=== PATIENT | male | born 2000 | race Caucasian/White ===

== ENCOUNTER 2022-06-12 10:39 | Emergency (ER) | payer MEDICAID, SELFPAY ==
[2022-06-12] VITALS (11 sets, daily range): BP systolic 125–139; BP diastolic 71–90; PULSE 62–92; RESP 24; TEMP 36.3; O2SAT 94–100; BMI 19.2
--- NOTE | 2022-06-12 11:17 | ED.GENADULT ---
HPI - General Adult General Time Seen by Provider: 11:17 Date Seen: 06/12/22 Chief complaint: Shortness of Breath/Dyspnea Stated complaint: Trouble breathing Time Seen by Provider: 06/12/22 10:54 Source: patient Mode of arrival: ambulatory Limitations: no limitations History of Present Illness HPI narrative: Patient is a 22 year white male who goes the favorable turned to [facility], who does vape, who has a history of asthma. He has had congestion over the last few days, he feels little better if he coughs up some mucus material. He has not noticed any audible wheezing. He does have a Symbicort inhaler as well as a albuterol inhaler. No rigors, chills, other symptoms, triple swab has been sent Related Data Home Medications Medication Instructions Recorded Confirmed albuterol sulfate 2.5 mg/3 mL 2.5 mg continuous nebulization QID 06/12/22 06/12/22 (0.083 %) solution for nebulization albuterol sulfate 90 mcg/actuation 2 puff inhalation Q4H PRN wheezing 06/12/22 06/12/22 aerosol inhaler (Ventolin HFA) budesonide-formoterol HFA 80 2 puff inhalation BID 06/12/22 06/12/22 mcg-4.5 mcg/actuation aerosol inhaler (Symbicort) clonazepam 0.5 mg tablet 0.5 mg PO QPM PRN insomnia 06/12/22 06/12/22 dextroamphetamine-amphetamine ER 1 cap PO DAILY 06/12/22 06/12/22 10 mg 24hr capsule,extend release (Adderall XR) escitalopram oxalate 10 mg tablet 10 mg PO QAM 06/12/22 06/12/22 famotidine 20 mg tablet 20 mg PO BID 06/12/22 06/12/22 lorazepam 0.5 mg tablet 0.5 mg PO DAILY PRN 06/12/22 06/12/22 Previous Rx's Medication Instructions Recorded doxycycline hyclate 100 mg capsule 100 mg PO BID #14 caps 06/12/22 prednisone 20 mg tablet 20 mg PO BID #10 tabs 06/12/22 Allergies Allergy/AdvReac Type Severity Reaction Status Date / Time No Known Drug Allergies Allergy Verified 06/12/22 10:53 Review of Systems Status of ROS: Reports: 6 or more systems reviewed and unremarkable except as noted in History and below [facility] Social History Smoking Status: Never smoker Do you use any of these nicotine containing products: Vaping Products Second hand tobacco smoke exposure: No How often do you have a drink containing alcohol: monthly or less How many standard drinks containing alcohol do you have on a typical day: 1 or 2 AUDIT-C Alcohol total score: 1 Non-prescribed substance use: marijuana (any form) Exam Narrative: Exam Narrative: Objective vital signs unremarkable O2 sat 100% on room air HEENT is unremarkable Lungs are clear no rales or wheezing good air exchange bilaterally Extremities good perfusion Const: Vital Signs, click to edit/add: Vital Signs - 24 hr 06/12/22 10:49 06/12/22 10:48 06/12/22 10:49 Temperature 97.4 F L Pulse Rate 78 81 Pulse Rate [Pulse Oximeter] 74 Respiratory Rate 24 Blood Pressure 136/90 H Blood Pressure [Ri ght Upper Arm] 136/90 H Pulse Oximetry 100 100 100 Oxygen Delivery Me thod Room Air 06/12/22 11:00 06/12/22 11:02 06/12/22 11:15 Temperature Pulse Rate 75 62 73 Pulse Rate [Pulse Oximeter] Respiratory Rate Blood Pressure 134/82 Blood Pressure [Ri ght Upper Arm] Pulse Oximetry 99 99 96 Oxygen Delivery Me thod 06/12/22 11:30 06/12/22 11:32 06/12/22 11:45 Temperature Pulse Rate 64 81 92 Pulse Rate [Pulse Oximeter] Respiratory Rate Blood Pressure 125/71 Blood Pressure [Ri ght Upper Arm] Pulse Oximetry 100 100 100 Oxygen Delivery Me thod 06/12/22 12:00 06/12/22 12:01 06/12/22 12:15 Temperature Pulse Rate 74 77 76 Pulse Rate [Pulse Oximeter] Respiratory Rate Blood Pressure 139/82 Blood Pressure [Ri ght Upper Arm] Pulse Oximetry 94 95 97 Oxygen Delivery Me thod Course Vital Signs Vital signs: Initial Vital Signs Pulse Rate 78 06/12/22 10:48 Blood Pressure 136/90 H 06/12/22 10:48 Blood Pressure Mean 105 06/12/22 10:48 Pulse Oximetry 100 06/12/22 10:48 Vital Signs Pulse Rate 78 06/12/22 10:48 Blood Pressure 136/90 H 06/12/22 10:48 Pulse Oximetry 100 06/12/22 10:48 Temperature 97.4 F L 06/12/22 10:49 Pulse Rate 76 06/12/22 12:15 Respiratory Rate 24 06/12/22 10:49 Blood Pressure 139/82 06/12/22 12:01 Pulse Oximetry 97 06/12/22 12:15 Oxygen Delivery Method 06/12/22 10:49 Medical Decision Making MDM Narrative Medical decision making narrative: 22-year-old male with history of smoking, with asthma exacerbation likely. Patient has had some congestion mucus. His lungs are clear his O2 sats 100%. At this point I think it be reasonable for symptom control to give him a DuoNeb, who continue his inhalers at home, will give him prednisone now and prednisone 20 b.i.d. for 5 days, also cover him with doxycycline 100 b.i.d. x7 days, follow up with his regular doctor in the next 2-3 days certainly sooner change concerns worsening return to the ED. recommend stopping vaping at this time, and would also return as needed Addendum: The patient's history anxiety, he was breathing quite rapidly and he felt his hands get tingly. Will give him Ativan 1 mg orally and observed for a period time. He does take clonazepam for anxiety as well Addendum: The patient is positive for COVID he has been sick for few days with the congestion. I do not think he would benefit from other antivirals at present patient appears hemodynamically stable in no good O2 sat. Would recommend the prednisone inhalers as described given his history of asthma as well Lab Data Labs: Lab Results 06/12/22 Range/Units 10:57 SARS-CoV-2 (PCR) POSITIVE SARS-CoV-2 A (Negative) Influenza Type A (PCR) Negative PCR FLU A (Negative) Influenza Type B (PCR) Negative PCR FLU B (Negative) RSV (PCR) Negative PCR RSV (Negative) Discharge Plan Discharge Clinical Impression: Asthma with acute exacerbation, COVID-19 Patient Disposition: Home, Self-Care Condition: Improved Instructions: COVID-19 (Coronavirus Disease 2019) (ED) Additional Instructions: Rest, fluids, stop vaping, prednisone 20 mg b.i.d. x5 days start tomorrow, doxycycline 100 mg b.i.d. x7 days start today, continue to use her 2 inhalers at home. Return to ED as needed, update in clinic in the next 2-3 days.isolate until better x 2 days Activity Level: Light activity Discharge Diet: Regular Prescriptions: New doxycycline hyclate 100 mg capsule 100 mg PO BID Qty: 14 0RF prednisone 20 mg tablet 20 mg PO BID Qty: 10 0RF No Action albuterol sulfate 2.5 mg /3 mL (0.083 %) solution for nebulization 2.5 mg continuous nebulization QID clonazepam 0.5 mg tablet 0.5 mg PO QPM PRN (Reason: insomnia) famotidine 20 mg tablet 20 mg PO BID lorazepam 0.5 mg tablet 0.5 mg PO DAILY PRN dextroamphetamine-amphetamine [Adderall XR] 10 mg capsule,extended release 24hr 1 cap PO DAILY albuterol sulfate [Ventolin HFA] 90 mcg/actuation HFA aerosol inhaler 2 puff INHALATION Q4H PRN (Reason: wheezing) escitalopram oxalate 10 mg tablet 10 mg PO QAM budesonide-formoterol [Symbicort] 80-4.5 mcg/actuation HFA aerosol inhaler 2 puff INHALATION BID Follow Up/Referrals: Provider,Not a Local [Primary Care Provider] - Stand Alone Forms: [employer] Info Instructions
[2022-06-12] MEDS: predniSONE 10 MG TABLET 50 MG PO (11:23)
[2022-06-12] MEDS: IPRAT-ALBUT 0.5-2.5 MG/3 ML NEB 1 NEB IH (11:23)
[2022-06-12 11:41] LABS: PCR FLU A Negative PCR FLU A (Negative); PCR FLU B Negative PCR FLU B (Negative); PCR RSV Negative PCR RSV (Negative)
[2022-06-12 11:48] LABS: SARS PCR* POSITIVE SARS-CoV-2 (Negative)
[2022-06-12] MEDS: LORazepam 1 MG TABLET PO (11:52)
--- NOTE | 2022-06-12 11:56 | ED.NURSE ---
was very anxious and co numbness in hands. dr ashton did chech him and ativan eas ordered and given. is aware that his covid was positive.
== END 2022-06-12 12:27 | disposition home or self-care (01) ==
PROVIDERS: Emergency Provider Family Medicine
DX: U07.1 COVID-19 (principal); J45.901 Unspecified asthma with (acute) exacerbation
CPT/HCPCS: 87502; 87634; 87635; 94640; 99283; 99284; A9270; J7512